=== PATIENT | male | born 1960 | race Native Hawaiian/Other Pacific Islander ===

== ENCOUNTER → 2016-07-13 | Outpatient (CLI) | payer BC ==
[2016-07-13 12:06] LABS: ALT 67 U/L (21-72); AST 49 U/L (17-59); Alkaline Phosphatase 179 U/L (38-126); Anion Gap 18 mmol/L; Blood Urea Nitrogen 12 mg/dL (9-20); Calcium 9.9 mg/dL (8.4-10.2); Carbon Dioxide 24 mmol/L (22-30); Chloride 96 mmol/L (98-107); Cholesterol 156 mg/dL (<200); Glucose 432 mg/dL (74-99); HDL Cholesterol 30 mg/dL (40-60); Non-African American GFR(MDRD) >60 (>60 ml/min/1.73 sqM); Potassium 4.8 mmol/L (3.5-5.1); Sodium 138 mmol/L (137-145); Total Bilirubin 1.1 mg/dL (0.2-1.3); Triglycerides 205 mg/dL (<150)
== END | disposition home or self-care (01) ==
LOC: LABWHC1 10:57
PROVIDERS: ATTEND Internal Medicine Interventional Cardiology
DX: E78.2 Mixed hyperlipidemia (principal)
CPT/HCPCS: 36415; 80053; 80061

== ENCOUNTER → 2016-12-21 | Outpatient (CLI) | payer BC ==
[2016-12-21 10:53] LABS: ALT 41 U/L (21-72); AST 23 U/L (17-59); Cholesterol 166 mg/dL (<200); HDL Cholesterol 38 mg/dL (40-60); Triglycerides 70 mg/dL (<150)
== END | disposition home or self-care (01) ==
LOC: LABWHC1 09:50
PROVIDERS: ATTEND Internal Medicine Interventional Cardiology
DX: E78.2 Mixed hyperlipidemia (principal)
CPT/HCPCS: 36415; 80061; 84450; 84460

== ENCOUNTER → 2017-08-16 | Outpatient (CLI) | payer BC ==
--- NOTE | 2017-08-16 16:07 | XR ---
Lumbar spine HISTORY: Chronic back pain 3 views of the lumbar spine No comparisons Lumbar vertebral bodies show preserved height, alignment, and bone mineralization. There is multileve l spondylosis present. Some mild loss of disc height at the intervertebral levels is noted. Mild ante rior wedge compression deformities of the lower thoracic spine may be physiologic. Sclerosis present in the posterior elements is compatible with facet arthropathy. IMPRESSION: Degenerative disc disease, facet arthropathy suspected. Lumbar MRI may be of benefit.
== END | disposition home or self-care (01) ==
LOC: RADXRMAIN 15:40
PROVIDERS: ATTEND Internal Medicine
DX: M51.36 Other intervertebral disc degeneration, lumbar region (principal); M46.96 Unspecified inflammatory spondylopathy, lumbar region
CPT/HCPCS: 72100

== ENCOUNTER 2017-08-17 11:41 | Emergency (ER) | payer BC ==
[2017-08-17] MEDS ORDERED: SODIUM CHLORIDE 0.9% 1,000 ML IV STA ×2 (12:05)
[2017-08-17] MEDS ORDERED: ONDANSETRON 4 MG/2 ML VIAL IVP STA (12:05)
[2017-08-17] MEDS ORDERED: DICYCLOMINE 10 MG/ML 2 ML AMP IM STA (12:05)
[2017-08-17] MEDS ORDERED: PANTOPRAZOLE 40 MG/10 ML VIAL IVP STA (12:05)
[2017-08-17] MEDS ORDERED: KETOROLAC 30 MG/ML 1 ML VIAL IVP STA (12:05)
[2017-08-17] MEDS ORDERED: MAG HYDROX/AL HYDROX/SIMETH 30 ML, HYOSCYAMINE ELIXIR 10 ML, CIMETIDINE HCL 300 MG PO STA ×3 (12:06)
--- NOTE | 2017-08-17 12:18 | ED ---
Abdominal Pain HPI - General Chief Complaint: Abdominal Pain Stated Complaint: abdominal pain Time Seen by Provider: 08/17/17 11:51 Source: patient, RN notes reviewed, old records reviewed Mode of arrival: ambulatory Limitations: no limitations - History of Present Illness Initial Comments: Patient is 57-year-old male presents emergency department today chief complaint of abdominal pain and dry heaving after he has a bowel movement in the morning. He reports he's had these symptoms for the past month. He states that the symptoms will occur only foramen ileectomy numbness pain and cramping and nausea subsides. He saw his PCP yesterday and was prescribed nausea medicine. He reports that he has no significant pain at this time. When he does have the pain in the morning and is cramping in nature. No blood in his stools or vomit. Patient reports normal urination. - Related Data Home Medications Medication Instructions Recorded Confirmed Aspirin 325 mg PO DAILY 03/25/15 08/17/17 Atorvastatin [Lipitor] 40 mg PO DAILY 03/25/15 08/17/17 Carvedilol [Coreg] 12.5 mg PO BID 08/17/17 08/17/17 Cyclobenzaprine [Flexeril] 10 mg PO BID PRN 08/17/17 08/17/17 Gabapentin [Neurontin] 200 mg PO TID 08/17/17 08/17/17 Ondansetron Odt [Zofran Odt] 4 mg PO Q12HR PRN 08/17/17 08/17/17 metFORMIN HCL [Glucophage] 500 mg PO TID 08/17/17 08/17/17 Previous Rx's Medication Instructions Recorded Clopidogrel [Plavix] 75 mg PO DAILY #90 tab 03/28/15 Lisinopril [Zestril] 5 mg PO BID #180 tab 03/28/15 Nitroglycerin Sl Tabs [Nitrostat] 0.4 mg SUBLINGUAL Q5M PRN #25 tab 03/28/15 Spironolactone [Aldactone] 25 mg PO DAILY #90 tab 03/28/15 Dicyclomine [Bentyl] 10 mg PO TID #12 capsule 08/17/17 Metoclopramide [Reglan] 10 mg PO TID PRN #15 tab 08/17/17 Allergies Allergy/AdvReac Type Severity Reaction Status Date / Time No Known Allergies Allergy Verified 08/17/17 12:07 Review of Systems ROS Statement: Those systems with pertinent positive or pertinent negative responses have been documented in the HPI. ROS Other: All systems not noted in ROS Statement are negative. Past Medical History Past Medical History: Coronary Artery Disease (CAD), Chest Pain / Angina, GERD/ Reflux, Hyperlipidemia, Hypertension, Myocardial Infarction ([place]) Additional Past Medical History / Comment(s): 03/27/15 Pt admitted to floor s/ p PCI with stent to L cx. Other HX: migraines, acute gallstone pancreatitis, cholelithiasis. Last Myocardial Infarction Date:: 2009 History of Any Multi-Drug Resistant Organisms: None Reported Past Surgical History: Adenoidectomy, Cholecystectomy, Heart Catheterization, Heart Catheterization With Stent, Tonsillectomy Additional Past Surgical History / Comment(s): 03/27/15 Cardiac cath with chronic occluded RCA, critical stenosis mid L cx and was stented, mild to moderate disease of proximal LAD, severely impaired L ventricular systolic function with EF est 30-35%. Other SX: Stenting of RCA, sinus surgery, Past Anesthesia/Blood Transfusion Reactions: Motion Sickness Date of Last Stent Placement:: 03/27/15 Past Psychological History: No Psychological Hx Reported Smoking Status: Never smoker Past Alcohol Use History: Occasional Past Drug Use History: Marijuana - Past Family History Mother Family Medical History: No Reported History Additional Family Medical History / Comment(s): Mother is . Pt does not know her PMH or how old she was when she . Father Family Medical History: Coronary Artery Disease (CAD) Additional Family Medical History / Comment(s): Father is - age of unknown. General Exam - General Exam Comments Initial Comments: This is a well appearing 57 year old male, no distress. Limitations: no limitations General appearance: alert, in no apparent distress Head exam: Present: atraumatic, normocephalic, normal inspection Eye exam: Present: normal appearance, PERRL, EOMI. Absent: scleral icterus, conjunctival injection, periorbital swelling ENT exam: Present: normal exam, mucous membranes moist Neck exam: Present: normal inspection. Absent: tenderness, meningismus, lymphadenopathy Respiratory exam: Present: normal lung sounds bilaterally. Absent: respiratory distress, wheezes, rales, rhonchi, stridor Cardiovascular Exam: Present: regular rate, normal rhythm, normal heart sounds. Absent: systolic murmur, diastolic murmur, rubs, gallop, clicks Extremities exam: Present: normal inspection, full ROM, normal capillary refill. Absent: tenderness, pedal edema, joint swelling, calf tenderness Back exam: Present: normal inspection Psychiatric exam: Present: normal affect, normal mood Skin exam: Present: warm, dry, intact, normal color. Absent: rash Course Vital Signs 08/17/17 08/17/17 08/17/17 11:47 13:22 15:26 Temperature 98.7 F 98.1 F Pulse Rate 79 83 86 Respiratory 18 16 18 Rate Blood Pressure 117/78 132/68 124/73 O2 Sat by Pulse 96 98 98 Oximetry Medical Decision Making - Medical Decision Making This patient is a 57 year old male with bowel spasm and nausea after bowel movement each morning. PAtient complains of acid reflux and cramping pain at this time. Labs reviewed and normal. Denies bloody stools. Patient given iIV fluids and pain medication. Given GI cocktail. Paitent KUB questions distal ureteral calculus, but CT confirms likely a pill or foreign body ingestion. Patient informed of results. Patient will be treated with bentyl for IBS symptoms and given referral for GI. Discussed return parameters. All questions answered. - Lab Data Result diagrams: 08/17/17 12:17 08/17/17 12:17 Lab Results 08/17/17 08/17/17 08/17/17 Range/Units 12:17 12:17 12:48 WBC 11.6 H (3.8-10.6) k/uL RBC 4.88 (4.30-5.90) m/uL Hgb 15.0 (13.0-17.5) gm/dL Hct 45.2 (39.0-53.0) % MCV 92.6 (80.0-100.0) fL MCH 30.7 (25.0-35.0) pg MCHC 33.2 (31.0-37.0) g/dL RDW 13.1 (11.5-15.5) % Plt Count 196 (150-450) k/uL Neutrophils % 81 % Lymphocytes % 13 % Monocytes % 4 % Eosinophils % 1 % Basophils % 0 % Neutrophils # 9.4 H (1.3-7.7) k/uL Lymphocytes # 1.5 (1.0-4.8) k/uL Monocytes # 0.4 (0-1.0) k/uL Eosinophils # 0.1 (0-0.7) k/uL Basophils # 0.0 (0-0.2) k/uL Sodium 140 (137-145) mmol/L Potassium 4.9 (3.5-5.1) mmol/L Chloride 103 (98-107) mmol/L Carbon Dioxide 24 (22-30) mmol/L Anion Gap 13 mmol/L BUN 14 (9-20) mg/dL Creatinine 0.62 L (0.66-1.25) mg/dL Est GFR (CKD-EPI)AfAm >90 (>60 ml/min/1.73 sqM) Est GFR (CKD-EPI)NonAf >90 (>60 ml/min/1.73 sqM) Glucose 147 H (74-99) mg/dL Calcium 9.8 (8.4-10.2) mg/dL Total Bilirubin 1.0 (0.2-1.3) mg/dL AST 30 (17-59) U/L ALT 39 (21-72) U/L Alkaline Phosphatase 109 (38-126) U/L Total Protein 8.0 (6.3-8.2) g/dL Albumin 4.2 (3.5-5.0) g/dL Amylase 50 (30-110) U/L Lipase 119 (23-300) U/L Urine Color Yellow Urine Appearance Cloudy (Clear) Urine pH 5.5 (5.0-8.0) Ur Specific [place] 1.029 (1.001-1.035) Urine Protein 1+ H (Negative) Urine Glucose (UA) Negative (Negative) Urine Ketones Trace H (Negative) Urine Blood Negative (Negative) Urine Nitrite Negative (Negative) Urine Bilirubin Negative (Negative) Urine Urobilinogen 2.0 (<2.0) mg/dL Ur Leukocyte Esterase Negative (Negative) Urine WBC 1 (0-5) /hpf Ur Squamous Epith Cells 1 (0-4) /hpf Urine Mucus Occasional H (None) /hpf - Radiology Data Radiology results: report reviewed No bowel obstruction is seen. No distal ureter calculus is noted. 11mm oval density could reflect ingested foreign body or swallowed tooth. Otherwise no suspicious finding is seen to account for patients symptoms. KUB shows distal ureteral 9mm calculus. Correlate clinically for ureteral stone. Disposition Clinical Impression: Abdominal spasms, Nausea Disposition: HOME SELF-CARE Condition: Good Instructions: Irritable Bowel Syndrome (ED) Additional Instructions: Patient advised to follow-up with primary care physician and GI specialist. Critical liquid diet for the next 2 days. Take the antispasmodic medication and use the nausea medicine. Return to the emergency department if any alarming signs symptoms occur. Prescriptions: Dicyclomine [Bentyl] 10 mg PO TID #12 capsule Metoclopramide [Reglan] 10 mg PO TID PRN #15 tab PRN Reason: Nausea Referrals: Lexie Pena MD [Primary Care Provider] - 1-2 days Cesar Henson MD [STAFF PHYSICIAN] - 1-2 days Time of Disposition: 15:10
[2017-08-17 12:40] LABS: Basophils % (A) 0 %; Eosinophils # (A) 0.1 k/uL (0-0.7); Eosinophils % (A) 1 %; HCT 45.2 % (39.0-53.0); Lymphocytes # (A) 1.5 k/uL (1.0-4.8); Lymphocytes % (A) 13 %; MCH 30.7 pg (25.0-35.0); MCHC 33.2 g/dL (31.0-37.0); MCV 92.6 fL (80.0-100.0); Mean Platelet Volume 8.2; Monocytes # (A) 0.4 k/uL (0-1.0); Monocytes % (A) 4 %; Neutrophils # (A) 9.4 k/uL (1.3-7.7); Neutrophils % (A) 81 %; Platelet Count 196 k/uL (150-450); RBC 4.88 m/uL (4.30-5.90); RDW 13.1 % (11.5-15.5); WBC 11.6 k/uL (3.8-10.6)
[2017-08-17 12:45] LABS: Albumin 4.2 g/dL (3.5-5.0); Amylase 50 U/L (30-110); Anion Gap 13 mmol/L; Calcium 9.8 mg/dL (8.4-10.2); Carbon Dioxide 24 mmol/L (22-30); Chloride 103 mmol/L (98-107); Glucose 147 mg/dL (74-99); Lipase 119 U/L (23-300); Potassium 4.9 mmol/L (3.5-5.1); Sodium 140 mmol/L (137-145)
[2017-08-17 12:46] LABS: ALT 39 U/L (21-72); AST 30 U/L (17-59); Alkaline Phosphatase 109 U/L (38-126); Blood Urea Nitrogen 14 mg/dL (9-20)
[2017-08-17 13:15] LABS: Appearance,Urine Cloudy (Clear); Bilirubin,Urine Negative (Negative); Blood,Urine Negative (Negative); Color,Urine Yellow; Glucose,Urine (UA) Negative (Negative); Ketones,Urine Trace (Negative); Leukocyte Esterase,Urine Negative (Negative); Mucus,Urine Occasional /hpf; Nitrite,Urine Negative (Negative); PH, Urine 5.5 (5.0-8.0); Protein,Urine 1+ (Negative); Specific Gravity,Urine 1.029 (1.001-1.035); Squamous Epithelial Cell,Urine 1 /hpf (0-4); WBC,Urine 1 /hpf (0-5)
--- NOTE | 2017-08-17 13:45 | XR ---
EXAMINATION TYPE: XR KUB DATE OF EXAM: 08/17/2017 1:28 PM CLINICAL HISTORY: Generalized abdominal pain with nausea and vomiting for 3 weeks. TECHNIQUE: Two Upright KUB images of the abdomen are obtained. COMPARISON: Abdominal x-ray series December 08, 2010. FINDINGS: Scattered gas is seen in non-distended small bowel loops. Gas and fecal material is seen in non-distended colon. Cholecystectomy clips are now present. There is suspected displaced clip into t he pelvis. There is right pelvic phlebolith. There is new 9 mm calcification superior to this suspici ous for distal ureter calculus. Correlate clinically. Lung bases are clear. No pneumoperitoneum is id entified. Multilevel spurring in the spine is present. IMPRESSION: Overall nonobstructive bowel gas pattern. Suspect new distal right ureter 9 mm calculus. Correlate clinically and with urine lab results.
--- NOTE | 2017-08-17 14:54 | CT ---
EXAMINATION TYPE: CT abdomen pelvis wo con DATE OF EXAM: 08/17/2017 HISTORY: Lower abd pain and nausea x3 weeks. CT DLP: 1682 mGycm. Automated Exposure Control for Dose Reduction was Utilized. TECHNIQUE: CT scan of the abdomen and pelvis is performed without oral or IV contrast. COMPARISON: Same day abdominal x-ray FINDINGS: Within the limitations of a non-contrast study, the following observations are made. LUNG BASES: Coronary artery calcification and/or stents in the RCA and left circumflex distribution a re noted. Dependent atelectasis in both bases is present. LIVER/GB:. Cholecystectomy clips are present. PANCREAS: No significant abnormality is seen. SPLEEN: No significant abnormality is seen. ADRENALS: No significant abnormality is seen. KIDNEYS: No renal stones or hydronephrosis is present bilaterally. Correlating with x-ray abnormality there is 11 mm oval calcific density within distal small bowel loop axial image 62 could reflect ing ested foreign body or possibly nondigested pill. Swallowed tooth would be in differential. BOWEL: A few diverticula are seen at level of splenic flexure. No suspicious small or large bowel dil atation is present. GENITAL ORGANS: Some central zone calcifications are seen in normal size prostate gland. LYMPH NODES: No greater than 1cm abdominal or pelvic lymph nodes are appreciated. OSSEOUS STRUCTURES: There is moderate to severe multilevel spurring in the visualized thoracic spine. OTHER: There are surgical sutures anterior abdominal wall subcutaneous fat just anterior to rectus mu scles and sheath axial image 67 of the lower abdomen just right of midline. IMPRESSION: No bowel obstruction is seen. No distal ureter calculus is noted. There is 11 mm oval samuel cific density in distal small bowel loop could reflect ingested foreign body or swallowed tooth. Othe rwise no suspicious finding is seen to account for patient's symptoms.
[2017-08-17 15:27] VITALS: BP 124/73; PULSE 86; RESP 18; TEMP 98.1
== END 2017-08-17 15:26 | disposition home or self-care (01) ==
LOC: EC 11:41
DX: R11.0 Nausea (principal); R25.2 Cramp and spasm; E78.5 Hyperlipidemia, unspecified; I10 Essential (primary) hypertension; I25.10 Atherosclerotic heart disease of native coronary artery without angina pectoris; I25.2 Old myocardial infarction; Z79.82 Long term (current) use of aspirin; Z79.84 Long term (current) use of oral hypoglycemic drugs; Z79.899 Other long term (current) drug therapy; Z90.49 Acquired absence of other specified parts of digestive tract; Z53.20 Procedure and treatment not carried out because of patient's decision for unspecified reasons
CPT/HCPCS: 99285; 96374; 96375 ×2; 96361 ×2; 36415; 80053; 82150; 83690; 85025; 81001; 74018; 74176; J2405; J1885; C9113

== ENCOUNTER 2017-08-18 09:17 | Emergency (ER) | payer BC ==
[2017-08-18] MEDS ORDERED: SODIUM CHLORIDE 0.9% 500 ML IV STA (10:25)
[2017-08-18] MEDS ORDERED: ONDANSETRON 4 MG/2 ML VIAL IVP STA (10:25)
[2017-08-18] MEDS ORDERED: DICYCLOMINE 10 MG/ML 2 ML AMP IM STA (10:26)
[2017-08-18] MEDS ORDERED: FAMOTIDINE 20 MG/2 ML VIAL IV STA (10:26)
--- NOTE | 2017-08-18 10:29 | ED ---
General Adult HPI - General Chief complaint: Abdominal Pain Stated complaint: ABDOMINAL PAIN Time Seen by Provider: 08/18/17 10:14 Source: patient, RN notes reviewed Mode of arrival: wheelchair Limitations: no limitations - History of Present Illness Initial comments: Patient is a pleasant 57-year-old male presenting to the emergency department with nausea. Symptoms have been occurring for months. Symptoms have been almost daily for the past few weeks. Patient wakes up in the morning and feels that he needs to have a bowel movement. Patient does have a bowel movement which is reported as normal. Following this patient has nausea and abdominal cramping. Nausea is usually worse and lasts longer. At this point abdominal cramping has resolved. There is no pain at this time. Patient still feels nauseated. Patient did take nausea medicine without improvement of symptoms. No fevers. No constipation or diarrhea. No dysuria or hematuria. Patient does have dry heaves however rarely vomits. - Related Data Home Medications Medication Instructions Recorded Confirmed Aspirin 325 mg PO DAILY 03/25/15 08/18/17 Atorvastatin [Lipitor] 40 mg PO DAILY 03/25/15 08/18/17 Carvedilol [Coreg] 12.5 mg PO BID 08/17/17 08/18/17 Cyclobenzaprine [Flexeril] 10 mg PO BID PRN 08/17/17 08/18/17 Gabapentin [Neurontin] 200 mg PO TID 08/17/17 08/18/17 Ondansetron Odt [Zofran Odt] 4 mg PO Q12HR PRN 08/17/17 08/18/17 metFORMIN HCL [Glucophage] 500 mg PO TID 08/17/17 08/18/17 Previous Rx's Medication Instructions Recorded Clopidogrel [Plavix] 75 mg PO DAILY #90 tab 03/28/15 Lisinopril [Zestril] 5 mg PO BID #180 tab 03/28/15 Nitroglycerin Sl Tabs [Nitrostat] 0.4 mg SUBLINGUAL Q5M PRN #25 tab 03/28/15 Spironolactone [Aldactone] 25 mg PO DAILY #90 tab 03/28/15 Dicyclomine [Bentyl] 10 mg PO TID #12 capsule 08/17/17 Metoclopramide [Reglan] 10 mg PO TID PRN #15 tab 08/17/17 Pantoprazole [Protonix] 40 mg PO DAILY #30 tablet. 08/18/17 Allergies Allergy/AdvReac Type Severity Reaction Status Date / Time No Known Allergies Allergy Verified 08/18/17 09:34 Review of Systems ROS Statement: Those systems with pertinent positive or pertinent negative responses have been documented in the HPI. ROS Other: All systems not noted in ROS Statement are negative. Constitutional: Denies: fever Eyes: Denies: eye pain ENT: Denies: ear pain Respiratory: Denies: cough Cardiovascular: Denies: chest pain Endocrine: Denies: fatigue Gastrointestinal: Reports: abdominal pain, nausea. Denies: diarrhea, constipation Genitourinary: Denies: dysuria Musculoskeletal: Denies: back pain Skin: Denies: rash Neurological: Denies: weakness Past Medical History Past Medical History: Coronary Artery Disease (CAD), Chest Pain / Angina, GERD/ Reflux, Hyperlipidemia, Hypertension, Myocardial Infarction ([place]) Additional Past Medical History / Comment(s): 03/27/15 Pt admitted to floor s/ p PCI with stent to L cx. Other HX: migraines, acute gallstone pancreatitis, cholelithiasis. Last Myocardial Infarction Date:: 2009 History of Any Multi-Drug Resistant Organisms: None Reported Past Surgical History: Adenoidectomy, Cholecystectomy, Heart Catheterization, Heart Catheterization With Stent, Tonsillectomy Additional Past Surgical History / Comment(s): 03/27/15 Cardiac cath with chronic occluded RCA, critical stenosis mid L cx and was stented, mild to moderate disease of proximal LAD, severely impaired L ventricular systolic function with EF est 30-35%. Other SX: Stenting of RCA, sinus surgery, Past Anesthesia/Blood Transfusion Reactions: Motion Sickness Date of Last Stent Placement:: 03/27/15 Past Psychological History: No Psychological Hx Reported Smoking Status: Current every day smoker Past Alcohol Use History: Occasional Past Drug Use History: Marijuana - Past Family History Mother Family Medical History: No Reported History Additional Family Medical History / Comment(s): Mother is . Pt does not know her PMH or how old she was when she . Father Family Medical History: Coronary Artery Disease (CAD) Additional Family Medical History / Comment(s): Father is - age of unknown. General Exam Limitations: no limitations General appearance: alert, in no apparent distress Head exam: Present: atraumatic Eye exam: Present: normal appearance, PERRL ENT exam: Present: normal oropharynx Neck exam: Present: normal inspection Respiratory exam: Present: normal lung sounds bilaterally Cardiovascular Exam: Present: regular rate, normal rhythm Expanded Peripheral pulses: 2+: Dorsalis Pedis (R), Dorsalis Pedis (L) GI/Abdominal exam: Present: soft, normal bowel sounds. Absent: distended, tenderness, guarding, rebound, rigid, pulsatile mass Extremities exam: Present: normal inspection Neurological exam: Present: alert Psychiatric exam: Present: normal affect, normal mood Skin exam: Present: normal color Course Vital Signs 08/18/17 08/18/17 09:20 11:43 Temperature 97.8 F Pulse Rate 73 87 Respiratory 18 16 Rate Blood Pressure 114/63 147/81 O2 Sat by Pulse 98 98 Oximetry EKG Findings - EKG Comments: EKG Findings:: Sinus rhythm at 83. Frequent PVCs. IL 154. QRS 116. QT 396. QTc 465. Left axis. Inferior Q waves. No acute ST change. Medical Decision Making - Medical Decision Making Patient reevaluated and improved after GI cocktail. Patient updated on results and need for follow-up. Patient updated on recommendation for endoscopy. - Lab Data Result diagrams: 08/18/17 10:34 08/18/17 10:34 Lab Results 08/18/17 08/18/17 08/18/17 Range/Units 10:34 10:34 10:34 WBC (3.8-10.6) k/uL RBC (4.30-5.90) m/uL Hgb (13.0-17.5) gm/dL Hct (39.0-53.0) % MCV (80.0-100.0) fL MCH (25.0-35.0) pg MCHC (31.0-37.0) g/dL RDW (11.5-15.5) % Plt Count (150-450) k/uL Neutrophils % % Lymphocytes % % Monocytes % % Eosinophils % % Basophils % % Neutrophils # (1.3-7.7) k/uL Lymphocytes # (1.0-4.8) k/uL Monocytes # (0-1.0) k/uL Eosinophils # (0-0.7) k/uL Basophils # (0-0.2) k/uL PT 10.5 (9.0-12.0) sec INR 1.1 (<1.2) APTT 23.7 (22.0-30.0) sec Sodium 140 (137-145) mmol/L Potassium 5.4 H (3.5-5.1) mmol/L Chloride 105 (98-107) mmol/L Carbon Dioxide 26 (22-30) mmol/L Anion Gap 9 mmol/L BUN 13 (9-20) mg/dL Creatinine 0.66 (0.66-1.25) mg/dL Est GFR (CKD-EPI)AfAm >90 (>60 ml/min/1.73 sqM) Est GFR (CKD-EPI)NonAf >90 (>60 ml/min/1.73 sqM) Glucose 160 H (74-99) mg/dL Calcium 9.3 (8.4-10.2) mg/dL Total Bilirubin 0.6 (0.2-1.3) mg/dL AST 21 (17-59) U/L ALT 37 (21-72) U/L Alkaline Phosphatase 99 (38-126) U/L Total Creatine Kinase 59 (55-170) U/L CK-MB (CK-2) 0.8 (0.0-2.4) ng/mL CK-MB (CK-2) Rel Index 1.4 Troponin I <0.012 (0.000-0.034) ng/mL Total Protein 7.2 (6.3-8.2) g/dL Albumin 3.8 (3.5-5.0) g/dL Amylase 45 (30-110) U/L Lipase 164 (23-300) U/L Urine Color Urine Appearance (Clear) Urine pH (5.0-8.0) Ur Specific [place] (1.001-1.035) Urine Protein (Negative) Urine Glucose (UA) (Negative) Urine Ketones (Negative) Urine Blood (Negative) Urine Nitrite (Negative) Urine Bilirubin (Negative) Urine Urobilinogen (<2.0) mg/dL Ur Leukocyte Esterase (Negative) 08/18/17 08/18/17 Range/Units 10:34 11:15 WBC 10.1 (3.8-10.6) k/uL RBC 4.61 (4.30-5.90) m/uL Hgb 13.9 (13.0-17.5) gm/dL Hct 43.1 (39.0-53.0) % MCV 93.6 (80.0-100.0) fL MCH 30.3 (25.0-35.0) pg MCHC 32.3 (31.0-37.0) g/dL RDW 13.1 (11.5-15.5) % Plt Count 181 (150-450) k/uL Neutrophils % 76 % Lymphocytes % 16 % Monocytes % 4 % Eosinophils % 2 % Basophils % 0 % Neutrophils # 7.7 (1.3-7.7) k/uL Lymphocytes # 1.6 (1.0-4.8) k/uL Monocytes # 0.4 (0-1.0) k/uL Eosinophils # 0.2 (0-0.7) k/uL Basophils # 0.0 (0-0.2) k/uL PT (9.0-12.0) sec INR (<1.2) APTT (22.0-30.0) sec Sodium (137-145) mmol/L Potassium (3.5-5.1) mmol/L Chloride (98-107) mmol/L Carbon Dioxide (22-30) mmol/L Anion Gap mmol/L BUN (9-20) mg/dL Creatinine (0.66-1.25) mg/dL Est GFR (CKD-EPI)AfAm (>60 ml/min/1.73 sqM) Est GFR (CKD-EPI)NonAf (>60 ml/min/1.73 sqM) Glucose (74-99) mg/dL Calcium (8.4-10.2) mg/dL Total Bilirubin (0.2-1.3) mg/dL AST (17-59) U/L ALT (21-72) U/L Alkaline Phosphatase (38-126) U/L Total Creatine Kinase (55-170) U/L CK-MB (CK-2) (0.0-2.4) ng/mL CK-MB (CK-2) Rel Index Troponin I (0.000-0.034) ng/mL Total Protein (6.3-8.2) g/dL Albumin (3.5-5.0) g/dL Amylase (30-110) U/L Lipase (23-300) U/L Urine Color Yellow Urine Appearance Clear (Clear) Urine pH 5.5 (5.0-8.0) Ur Specific [place] 1.019 (1.001-1.035) Urine Protein Negative (Negative) Urine Glucose (UA) Negative (Negative) Urine Ketones Negative (Negative) Urine Blood Negative (Negative) Urine Nitrite Negative (Negative) Urine Bilirubin Negative (Negative) Urine Urobilinogen <2.0 (<2.0) mg/dL Ur Leukocyte Esterase Negative (Negative) Disposition Clinical Impression: Nausea Disposition: HOME SELF-CARE Condition: Stable Instructions: Acute Nausea and Vomiting (ED), Abdominal Pain (ED) Additional Instructions: Please follow-up with your primary care physician this week. Also consider follow-up with gastroenterology or surgeon for endoscopy. Return for increased pain, fevers, not tolerating fluids, worsening or changing symptoms or other concerns. Prescriptions: Pantoprazole [Protonix] 40 mg PO DAILY #30 tablet.dr Referrals: Lexie Pena MD [Primary Care Provider] - 1-2 days Time of Disposition: 12:23
[2017-08-18 10:46] LABS: Basophils % (A) 0 %; Eosinophils # (A) 0.2 k/uL (0-0.7); Eosinophils % (A) 2 %; HCT 43.1 % (39.0-53.0); HGB 13.9 gm/dL (13.0-17.5); Lymphocytes # (A) 1.6 k/uL (1.0-4.8); Lymphocytes % (A) 16 %; MCH 30.3 pg (25.0-35.0); MCHC 32.3 g/dL (31.0-37.0); MCV 93.6 fL (80.0-100.0); Mean Platelet Volume 8.1; Monocytes # (A) 0.4 k/uL (0-1.0); Monocytes % (A) 4 %; Neutrophils # (A) 7.7 k/uL (1.3-7.7); Neutrophils % (A) 76 %; Platelet Count 181 k/uL (150-450); RBC 4.61 m/uL (4.30-5.90); RDW 13.1 % (11.5-15.5); WBC 10.1 k/uL (3.8-10.6)
[2017-08-18 10:56] LABS: ALT 37 U/L (21-72); AST 21 U/L (17-59); Albumin 3.8 g/dL (3.5-5.0); Alkaline Phosphatase 99 U/L (38-126); Amylase 45 U/L (30-110); Anion Gap 9 mmol/L; Blood Urea Nitrogen 13 mg/dL (9-20); Calcium 9.3 mg/dL (8.4-10.2); Carbon Dioxide 26 mmol/L (22-30); Chloride 105 mmol/L (98-107); Glucose 160 mg/dL (74-99); Lipase 164 U/L (23-300); Potassium 5.4 mmol/L (3.5-5.1); Sodium 140 mmol/L (137-145); Total Bilirubin 0.6 mg/dL (0.2-1.3); Total Protein 7.2 g/dL (6.3-8.2)
[2017-08-18 11:03] LABS: Creatine Kinase 59 U/L (55-170)
[2017-08-18 11:04] LABS: INR 1.1 (<1.2); Partial Thromboplastin Time 23.7 sec (22.0-30.0); Prothrombin Time 10.5 sec (9.0-12.0)
--- NOTE | 2017-08-18 11:05 | XR ---
EXAMINATION TYPE: XR KUB DATE OF EXAM: 08/18/2017 10:54 AM CLINICAL HISTORY: Generalized abdominal pain with nausea and vomiting. TECHNIQUE: Two Upright KUB images of the abdomen are obtained. COMPARISON: CT abdomen and pelvis and abdominal x-ray from one day earlier. FINDINGS: Scattered gas is seen in non-distended stomach and small bowel loops. Gas and fecal materia l is seen in non-distended colon. Cholecystectomy clips are redemonstrated. A 9 mm calcific density h as progressed to lateral aspect right upper pelvis likely approaching cecum. Lung bases are clear. No pneumoperitoneum is identified. There is metallic subcutaneous staple overlying the superior aspect of pubic symphysis. Visualized osseous structures are intact. IMPRESSION: Overall nonobstructive bowel gas pattern.
[2017-08-18 11:16] LABS: Creatine Kinase MB 0.8 ng/mL (0.0-2.4); Troponin I <0.012 ng/mL (0.000-0.034)
[2017-08-18] MEDS ORDERED: MAG HYDROX/AL HYDROX/SIMETH 30 ML, HYOSCYAMINE ELIXIR 10 ML, CIMETIDINE HCL 300 MG, LID... PO STA ×4 (11:37)
[2017-08-18 11:47] LABS: Appearance,Urine Clear (Clear); Bilirubin,Urine Negative (Negative); Blood,Urine Negative (Negative); Color,Urine Yellow; Glucose,Urine (UA) Negative (Negative); Ketones,Urine Negative (Negative); Leukocyte Esterase,Urine Negative (Negative); Nitrite,Urine Negative (Negative); PH, Urine 5.5 (5.0-8.0); Protein,Urine Negative (Negative); Specific Gravity,Urine 1.019 (1.001-1.035); Urobilinogen,Urine <2.0 mg/dL (<2.0)
[2017-08-18 11:50] VITALS: RESP 16
[2017-08-18 12:29] VITALS: BP 111/55; PULSE 80; TEMP 98.5
== END 2017-08-18 12:29 | disposition home or self-care (01) ==
LOC: EC 09:17
DX: R11.2 Nausea with vomiting, unspecified (principal); I25.119 Atherosclerotic heart disease of native coronary artery with unspecified angina pectoris; E78.5 Hyperlipidemia, unspecified; I10 Essential (primary) hypertension; I25.2 Old myocardial infarction; F17.200 Nicotine dependence, unspecified, uncomplicated; Z79.82 Long term (current) use of aspirin; Z79.84 Long term (current) use of oral hypoglycemic drugs; Z79.899 Other long term (current) drug therapy; Z90.49 Acquired absence of other specified parts of digestive tract
CPT/HCPCS: 36415; 93005; 80053; 82150; 82550; 82553; 83690; 84484; 85025; 85610; 85730; 81003; 74018; 99284; 96374; 96375; 96361; 96372; J0500; J2405

== ENCOUNTER → 2018-05-09 | Outpatient (CLI) | payer BC ==
[2018-05-09 17:16] LABS: Albumin 4.2 g/dL (3.80-4.90); Albumin/Globulin Ratio 1.62 (1.20-2.10); Anion Gap 4.1 mmol/L (4.00-12.00); Carbon Dioxide 25.9 mmol/L (21.6-31.8); Globulin 2.6 g/dL (2.1-3.7); LDL Cholesterol,Calculated 66.2 mg/dL (0.0-131.0); Potassium 4.4 mmol/L (3.5-5.5); Total Bilirubin 0.5 mg/dL (0.2-1.2); Total Protein 6.8 g/dL (6.2-8.2); VLDL Calculation 10.8 mg/dL (5.00-40.00)
== END ==
LOC: LABWHC1 09:26
PROVIDERS: ATTEND Nurse Practitioner Adult Health
DX: E78.2 Mixed hyperlipidemia (principal); I25.5 Ischemic cardiomyopathy
CPT/HCPCS: 36415; 80053; 80061

== ENCOUNTER 2019-06-03 17:22 | Emergency (ER) | payer BC ==
[2019-06-03 18:11] VITALS: RESP 18
[2019-06-03] MEDS ORDERED: ACET/COD 300 MG/30 MG STARTER PACK 6 TAB BTL PO STA (18:48)
--- NOTE | 2019-06-03 19:06 | XR ---
EXAMINATION TYPE: XR shoulder complete LT DATE OF EXAM: 06/03/2019 COMPARISON: NONE HISTORY: Left shoulder pain TECHNIQUE: 3 views FINDINGS: The glenohumeral joint is intact. I see no fracture nor dislocation. There are no pathologi c calcifications. IMPRESSION: Negative left shoulder exam.
--- NOTE | 2019-06-03 19:13 | ED ---
Upper Extremity HPI - General Chief Complaint: Extremity Injury, Upper Stated Complaint: Fall, shoulder injury Source: patient Mode of arrival: ambulatory Limitations: no limitations - History of Present Illness Initial Comments: 59-year-old male presenting today for chief complaint of left shoulder pain patient states he fell while he was in [place] this morning when he s lipped on ice. Patient denies injury to the head or neck facilities. The anterior right shoulder. Patient denies any chest or abdominal pain, denies SOB. Patient denies rib pain, wrist pain. States pain radiates towards audible. Patient denies weakness of the UE. Patient remaining ROS (-). Denies other injuries. - Related Data Home Medications Medication Instructions Recorded Confirmed Aspirin 325 mg PO DAILY 03/25/15 08/18/17 Atorvastatin [Lipitor] 40 mg PO DAILY 03/25/15 08/18/17 Carvedilol [Coreg] 12.5 mg PO BID 08/17/17 08/18/17 Cyclobenzaprine [Flexeril] 10 mg PO BID PRN 08/17/17 08/18/17 Gabapentin [Neurontin] 200 mg PO TID 08/17/17 08/18/17 Ondansetron Odt [Zofran Odt] 4 mg PO Q12HR PRN 08/17/17 08/18/17 metFORMIN HCL [Glucophage] 500 mg PO TID 08/17/17 08/18/17 Previous Rx's Medication Instructions Recorded Clopidogrel [Plavix] 75 mg PO DAILY #90 tab 03/28/15 Lisinopril [Zestril] 5 mg PO BID #180 tab 03/28/15 Nitroglycerin Sl Tabs [Nitrostat] 0.4 mg SUBLINGUAL Q5M PRN #25 tab 03/28/15 Spironolactone [Aldactone] 25 mg PO DAILY #90 tab 03/28/15 Dicyclomine [Bentyl] 10 mg PO TID #12 capsule 08/17/17 Metoclopramide [Reglan] 10 mg PO TID PRN #15 tab 08/17/17 Pantoprazole [Protonix] 40 mg PO DAILY #30 tablet. 08/18/17 Allergies Allergy/AdvReac Type Severity Reaction Status Date / Time No Known Allergies Allergy Verified 06/03/19 18:11 Review of Systems ROS Statement: Those systems with pertinent positive or pertinent negative responses have been documented in the HPI. ROS Other: All systems not noted in ROS Statement are negative. Past Medical History Past Medical History: Coronary Artery Disease (CAD), Chest Pain / Angina, GERD/Reflux, Hyperlipidemia, Hypertension, Myocardial Infarction ([place]) Additional Past Medical History / Comment(s): migraines, acute gallstone pancreatitis, cholelithiasis. Last Myocardial Infarction Date:: 2009 History of Any Multi-Drug Resistant Organisms: None Reported Past Surgical History: Adenoidectomy, Cholecystectomy, Heart Catheterization, Heart Catheterization With Stent, Tonsillectomy Additional Past Surgical History / Comment(s): 03/27/15 Cardiac cath with chronic occluded RCA, critical stenosis mid L cx and was stented, mild to moderate disease of proximal LAD, severely impaired L ventricular systolic function with EF est 30-35%. Other SX: Stenting of RCA, sinus surgery, Past Anesthesia/Blood Transfusion Reactions: Motion Sickness Date of Last Stent Placement:: 03/27/15 Past Psychological History: No Psychological Hx Reported Smoking Status: Current every day smoker Past Alcohol Use History: Occasional Past Drug Use History: Marijuana - Past Family History Mother Family Medical History: No Reported History Additional Family Medical History / Comment(s): Mother is . Pt does not know her PMH or how old she was when she . Father Family Medical History: Coronary Artery Disease (CAD) Additional Family Medical History / Comment(s): Father is - age of unknown. General Exam - General Exam Comments Initial Comments: General: The patient is awake and alert, in no distress, and does not appear acutely ill. Eye: Pupils are equal, round and reactive to light, extra-ocular movements are intact. No nystagmus. There is normal conjunctiva bilaterally. No signs of icterus. Ears, nose, mouth and throat: There are moist mucous membranes and no oral lesions. Neck: The neck is supple, there is no tenderness or JVD. No metatarsal patient or paravertebral of the cervical thoracic or lumbar spine. Cardiovascular: There is a regular rate and rhythm. No murmur, rub or gallop is appreciated. Respiratory: Lungs are clear to auscultation, respirations are non-labored, breath sounds are equal. No wheezes, stridor, rales, or rhonchi. Gastrointestinal: Soft, non-distended, non-tender abdomen without masses or organomegaly noted. There is no rebound or guarding present. Musculoskeletal: Normal inspection of the shoulders bilaterally. Patient is pain over the before meals joint of the left shoulder. No pain of the elbow and wrist. Patient is able to range the shoulder however has pain in the left shoulder. Strength 5/5. Sensation intact. Radial pulses equal bilaterally 2+. Patient is able to make the okay fingers crossed thumbs-up and oppose the small digit thumb without difficulty of the left upper extremity Neurological: A&O x 3. CN II-XII intact grossly, There are no obvious motor or sensory deficits. Coordination appears grossly intact. Speech is normal. Skin: Skin is warm and dry and no rashes or lesions are noted. Psychiatric: Cooperative, appropriate mood & affect, normal judgment. Limitations: no limitations Course Vital Signs 06/03/19 06/03/19 18:08 21:00 Temperature 98.3 F 98 F Pulse Rate 67 91 Respiratory 18 18 Rate Blood Pressure 127/78 112/88 O2 Sat by Pulse 94 L 94 L Oximetry Medical Decision Making - Medical Decision Making Pt denied head injury, LOC, use of blood thinners, neck pain or any other complaints. Imaging studies negative for acute process of the left shoulder however pain has been localized over the AC joint. patient placed in sling. Neurovascularly intact. imaging studies reviewed. Discussed case with attending Dr. Chinchilla who is agreeable to discharge with outpatient orthopedic f/u. Disposition Clinical Impression: Left shoulder pain, Fall Disposition: HOME SELF-CARE Condition: Good Instructions (If sedation given, give patient instructions): Acromioclavicular Separation (ED) Additional Instructions: Please use medication as discussed. Please follow-up with family doctor in the next 2 days, and orthopedic surgery in next week if pain is persistent, may need MRI of shoulder for better evaluation. Please return to emergency room if the symptoms increase or worsen or for any other concerns. Is patient prescribed a controlled substance at d/c from ED?: No Referrals: Lexie Pena MD [Primary Care Provider] - 1-2 days Isaac Nugent MD [STAFF PHYSICIAN] - 1-2 days Time of Disposition: 20:07
--- NOTE | 2019-06-03 20:04 | XR ---
EXAMINATION TYPE: XR elbow complete LT DATE OF EXAM: 06/03/2019 COMPARISON: NONE HISTORY: Elbow pain TECHNIQUE: 3 views FINDINGS: I see no fracture nor dislocation. Joint spaces are normal. There is no sign of elbow joint effusion. IMPRESSION: Negative left elbow exam.
[2019-06-03 21:03] VITALS: BP 112/88; PULSE 91; TEMP 98
== END 2019-06-03 20:50 | disposition home or self-care (01) ==
LOC: EC 17:22
DX: M25.512 Pain in left shoulder (principal); I25.119 Atherosclerotic heart disease of native coronary artery with unspecified angina pectoris; K21.9 Gastro-esophageal reflux disease without esophagitis; E78.5 Hyperlipidemia, unspecified; I10 Essential (primary) hypertension; I25.2 Old myocardial infarction; F17.200 Nicotine dependence, unspecified, uncomplicated; Z79.82 Long term (current) use of aspirin; Z79.84 Long term (current) use of oral hypoglycemic drugs; Z79.899 Other long term (current) drug therapy; Z86.69 Personal history of other diseases of the nervous system and sense organs; Z95.5 Presence of coronary angioplasty implant and graft; W00.0XXA Fall on same level due to ice and snow, initial encounter; Y92.89 Other specified places as the place of occurrence of the external cause
CPT/HCPCS: 99283

== ENCOUNTER → 2020-04-17 | Outpatient (CLI) | payer BC ==
[2020-04-17 15:08] LABS: African American GFR (CKD) 95.7 (60.0-200.0); Albumin 4.3 g/dL (3.80-4.90); Albumin/Globulin Ratio 1.16 (1.60-3.17); Anion Gap 5.2 mmol/L (4.00-12.00); Calcium 9.9 mg/dL (8.7-10.3); Carbon Dioxide 28.8 mmol/L (21.6-31.8); Chol/HDL Ratio 4.09; Globulin 3.7 g/dL (1.6-3.3); LDL Cholesterol,Calculated 79.4 mg/dL (0.0-131.0); Non-African American GFR(CKD) 82.6 (60.0-200.0); Potassium 5.1 mmol/L (3.5-5.5); Total Bilirubin 0.5 mg/dL (0.2-1.2); VLDL Calculation 25.6 mg/dL (5.00-40.00)
== END | disposition home or self-care (01) ==
LOC: LABWHC1 08:09
PROVIDERS: ATTEND Internal Medicine Interventional Cardiology
DX: E78.2 Mixed hyperlipidemia (principal)
CPT/HCPCS: 36415; 80053; 80061

== ENCOUNTER → 2020-05-28 | Outpatient (CLI) | payer BC ==
--- NOTE | 2020-05-28 09:21 | US ---
EXAMINATION TYPE: US kidneys/renal and bladder DATE OF EXAM: 05/28/2020 COMPARISON: NONE CLINICAL HISTORY: R10.9 FLANK PAIN. on and off right flank pain for a year, no h/o stones, large habi tus EXAM MEASUREMENTS: Right Kidney: 11.5 x 5.0 x 5.4 cm Left Kidney: 11.9 x 5.5 x 5.7 cm Right Kidney: No hydronephrosis or masses seen Left Kidney: No hydronephrosis or masses seen Bladder: wnl IMPRESSION: 1. Normal renal ultrasound
== END | disposition home or self-care (01) ==
LOC: RADUSWWP 07:04
PROVIDERS: ATTEND Internal Medicine
DX: R10.9 Unspecified abdominal pain (principal)
CPT/HCPCS: 76770

== ENCOUNTER → 2020-10-24 | Outpatient (CLI) | payer BC ==
[2020-10-24 22:10] LABS: African American GFR (CKD) 114.1 (60.0-200.0); Albumin 4.3 g/dL (3.80-4.90); Albumin/Globulin Ratio 1.19 (1.60-3.17); Anion Gap 10.7 mmol/L (4.00-12.00); Calcium 9.7 mg/dL (8.7-10.3); Carbon Dioxide 24.3 mmol/L (21.6-31.8); Chol/HDL Ratio 5.77; Globulin 3.6 g/dL (1.6-3.3); LDL Cholesterol,Calculated 153.6 mg/dL (0.0-131.0); Non-African American GFR(CKD) 98.5 (60.0-200.0); Potassium 4.8 mmol/L (3.5-5.5); Total Bilirubin 0.7 mg/dL (0.2-1.2); Total Protein 7.9 g/dL (6.2-8.2); VLDL Calculation 32.4 mg/dL (5.00-40.00)
== END | disposition home or self-care (01) ==
LOC: LABWHC1 08:10
PROVIDERS: ATTEND Internal Medicine Interventional Cardiology
DX: E78.2 Mixed hyperlipidemia (principal)
CPT/HCPCS: 36415; 80053; 80061

== ENCOUNTER 2020-11-28 07:24 | Day surgery (SDC) | payer BC ==
[2020-11-26 09:56] VITALS: BMI 48.2
[~2020-11-28 07:24] MED LIST: LACTATED RINGERS 1,000 ML IV SCH; LIDOCAINE 1% (10MG/ML) FOR IV START INTRADERMA PRN
[2020-11-28 07:47] VITALS: RESP 16; TEMP 98.3
[2020-11-28 08:02] LABS: Glucose,Whole Blood 246 mg/dL (75-99)
[2020-11-28] MEDS ORDERED: PROPOFOL 10 MG/ML 20 ML VIAL IV ONE (08:41)
--- NOTE | 2020-11-28 08:55 | P.PCN ---
Date of Procedure: 11/28/20 Description of Procedure: BRIEF HISTORY: Patient is a 60-year-old male presenting for outpatient esophagogastroduodenoscopy for evaluation of GERD. The patient reports symptoms of epigastric abdominal pain and distention and reflux. PROCEDURE PERFORMED: Esophagogastroduodenoscopy with biopsy. PREOPERATIVE DIAGNOSIS: GERD, epigastric pain. ESTIMATED BLOOD LOSS: Minimal. IV sedation per anesthesia. PROCEDURE: After informed consent was obtained, the patient was brought into the endoscopy unit. IV sedation was administered by Anesthesia under continuous monitoring. Initially the Olympus GIF-190 video endoscope was inserted into the mouth. Esophagus intubated without any difficulty. It was gradually advanced into the stomach and duodenum and carefully examined. The bulb and the second part of the duodenum appeared normal, with biopsies taken. The scope at this time was withdrawn to the stomach, adequately insufflated with air, and upon careful examination, mucosa of the antrum, body, cardia and the fundus appeared normal, except for some scattered erythema and nodularity in the antrum and body suggestive of mild gastritis with biopsies of the antrum and body taken. The scope was then withdrawn into the esophagus. The GE junction was located at 39 cm from the incisors. The esophagus appeared normal, with lower esophageal biopsies taken. There were no erosions or ulcerations seen and the patient tolerated the procedure well. IMPRESSION: 1. Mild gastritis. 2. Biopsies of the duodenum, antrum and body and lower esophagus. RECOMMENDATIONS: The findings of this examination were discussed with the patient and his family. Okay to resume diet. Okay to resume medications. Await pathology from biopsies. Continue current medical management.
[2020-11-28 09:26] VITALS: BP 126/85; PULSE 81
== END 2020-11-28 09:45 | disposition home or self-care (01) ==
LOC: ORWHC2ENDO 07:24
PROVIDERS: ATTEND Internal Medicine
DX: K29.50 Unspecified chronic gastritis without bleeding (principal); K21.9 Gastro-esophageal reflux disease without esophagitis; I25.10 Atherosclerotic heart disease of native coronary artery without angina pectoris; I10 Essential (primary) hypertension; E78.5 Hyperlipidemia, unspecified; I25.2 Old myocardial infarction; E11.9 Type 2 diabetes mellitus without complications; Z90.89 Acquired absence of other organs; Z90.49 Acquired absence of other specified parts of digestive tract; Z98.890 Other specified postprocedural states; Z79.82 Long term (current) use of aspirin; Z79.84 Long term (current) use of oral hypoglycemic drugs; Z79.891 Long term (current) use of opiate analgesic; Z79.899 Other long term (current) drug therapy
CPT/HCPCS: 88305; 43239; J2704

== ENCOUNTER → 2021-07-01 | Outpatient (CLI) | payer BC ==
[2021-07-01 14:50] LABS: HCT 49.9 % (39.6-50.0); HGB 15.4 g/dL (13.0-17.0); MCH 29.2 pg (27.0-32.0); MCHC 30.9 g/dL (32.0-37.0); MCV 94.5 fL (80.0-97.0); Platelet Count 190 X 10*3/uL (140-440); RBC 5.28 X 10*6/uL (4.40-5.60); RDW 12.7 % (11.5-14.5); WBC 9.53 X 10*3/uL (4.50-10.00)
[2021-07-01 15:06] LABS: ALT 41 U/L (10-49); AST 40 U/L (14-35); Albumin 3.9 g/dL (3.8-4.9); Albumin/Globulin Ratio 0.96 (1.60-3.17); Alkaline Phosphatase 106 U/L (41-126); BUN/Creat Ratio 10.15 Ratio (12.00-20.00); Blood Urea Nitrogen 7.5 mg/dL (9.0-27.0); Calcium 9.6 mg/dL (8.7-10.3); Carbon Dioxide 25.3 mmol/L (20.0-27.5); Chloride 100 mmol/L (96-109); Chol/HDL Ratio 3.56 Ratio; Globulin 4.1 g/dL (1.6-3.3); Glucose 324 mg/dL (70-110); LDL Cholesterol,Calculated 77.4 mg/dL (0.0-131.0); Non-African American GFR(CKD) 100.9 (60.0-200.0); Potassium 4.9 mmol/L (3.5-5.5); Sodium 136 mmol/L (135-145); VLDL Calculation 15.42 mg/dL (5.00-40.00)
== END | disposition home or self-care (01) ==
LOC: LABWHC1 08:52
PROVIDERS: ATTEND Nurse Practitioner Adult Health
DX: I10 Essential (primary) hypertension (principal); E78.2 Mixed hyperlipidemia
CPT/HCPCS: 36415; 80053; 80061; 85027

== ENCOUNTER 2022-01-24 13:48 | Emergency (ER) | payer BC ==
[2022-01-24 13:52] VITALS: TEMP 97
[2022-01-24] MEDS ORDERED: KETOROLAC 15 MG/ML 1 ML VIAL IVP STA (14:05)
[2022-01-24] MEDS ORDERED: SODIUM CHLORIDE 0.9% 1,000 ML IV STA (14:05)
[2022-01-24] MEDS ORDERED: ONDANSETRON 4 MG/2 ML VIAL IVP STA (14:05)
--- NOTE | 2022-01-24 14:39 | ED ---
Abdominal Pain HPI - General Chief Complaint: Abdominal Pain Stated Complaint: Abd Pain Time Seen by Provider: 01/24/22 13:53 Source: patient, family, RN notes reviewed Mode of arrival: wheelchair Limitations: no limitations - History of Present Illness Initial Comments: This is a 61-year-old male who presents to the emergency department for abdominal pain. Patient describes this as being in the bilateral lower quadrants. He has associated nausea and vomiting. States that this is an ongoing issue and has been present for the last 3 years. He often wakes up with nausea, vomiting, and lower abdominal pain. It usually resolves on its own within a couple of hours, however this pain has persisted. States that the only thing that makes it better is hot showers. The patient does smoke marijuana daily. He has seen Dr. Ji in the past, but states that it has been a couple of years. Denies any fevers, chills, sore throat, cough, dyspnea, chest pain, palpitations, diarrhea, back pain, or headaches. MD Complaint: abdominal pain Location: LLQ, RLQ Associated Symptoms: nausea, vomiting - Related Data Home Medications Medication Instructions Recorded Confirmed Aspirin 325 mg PO DAILY 03/25/15 11/26/20 Atorvastatin [Lipitor] 40 mg PO DAILY 03/25/15 11/26/20 carvediloL [Coreg] 12.5 mg PO BID 08/17/17 11/26/20 metFORMIN HCL [Glucophage] 500 mg PO TID-W/MEALS 08/17/17 11/26/20 ALPRAZolam [Xanax] 1 mg PO DAILY PRN 11/26/20 11/26/20 HYDROcodone/APAP 10-325MG [[place]ine 1 tab PO DIRECTED PRN 11/26/20 11/26/20 10-325] lisinopriL [Zestril] 5 mg PO DAILY 11/26/20 11/26/20 Previous Rx's Medication Instructions Recorded Metoclopramide [Reglan] 10 mg PO Q6H PRN #20 tab 01/24/22 Ondansetron Odt [Zofran Odt] 4 mg PO Q8HR PRN #20 tab 01/24/22 Allergies Allergy/AdvReac Type Severity Reaction Status Date / Time No Known Allergies Allergy Verified 01/24/22 13:49 Review of Systems ROS Statement: Those systems with pertinent positive or pertinent negative responses have been documented in the HPI. ROS Other: All systems not noted in ROS Statement are negative. Past Medical History Past Medical History: Coronary Artery Disease (CAD), Chest Pain / Angina, Diabetes Mellitus, GERD/Reflux, Hyperlipidemia, Hypertension, Myocardial Infarction ([place]) Additional Past Medical History / Comment(s): migraines, HX-gallstone pancreatitis, occasional back pain., states having stomach pain & nausea. Last Myocardial Infarction Date:: 2009 History of Any Multi-Drug Resistant Organisms: None Reported Past Surgical History: Adenoidectomy, Cholecystectomy, Heart Catheterization, Heart Catheterization With Stent, Tonsillectomy Additional Past Surgical History / Comment(s): sinus surgery Past Anesthesia/Blood Transfusion Reactions: No Reported Reaction Date of Last Stent Placement:: 03/27/15 Past Psychological History: Anxiety Smoking Status: Never smoker Past Alcohol Use History: Occasional Past Drug Use History: Marijuana - Past Family History Mother Family Medical History: No Reported History Additional Family Medical History / Comment(s): Mother is . Pt does not know her PMH or how old she was when she . Father Family Medical History: Coronary Artery Disease (CAD) Additional Family Medical History / Comment(s): Father is - age of unknown. General Exam Limitations: no limitations General appearance: alert, in distress Head exam: Present: atraumatic, normocephalic, normal inspection Respiratory exam: Present: normal lung sounds bilaterally. Absent: respiratory distress, wheezes, rales, rhonchi, stridor Cardiovascular Exam: Present: regular rate, normal rhythm, normal heart sounds. Absent: systolic murmur, diastolic murmur, rubs, gallop, clicks Neurological exam: Present: alert, oriented X3, CN II-XII intact Psychiatric exam: Present: normal affect, normal mood Skin exam: Present: warm, dry, intact, normal color. Absent: rash Course Vital Signs 01/24/22 13:49 Temperature 97 F L Pulse Rate 114 H Respiratory 18 Rate Blood Pressure 122/80 O2 Sat by Pulse 99 Oximetry Medical Decision Making - Medical Decision Making This is a 61-year-old male who presents to the emergency department for abdominal pain. Lab work reveals mild leukocytosis, which may be reactive due to the nausea and vomiting. Given the acute increase in pain, the patient's age and risk factors, and the noted distress, will obtain computed tomography scan of the abdomen and pelvis. Computed tomography scan of the abdomen and pelvis revealed no acute irregularities. Patient was given IV fluids, Toradol, Reglan, and Zofran. After medication administration, the patient noted substantial improvement in his symptoms. Given that this has been a chronic issue and improves with hot showers, this is very suspicious for cannabinoid hyperemesis syndrome. This was discussed with the patient, and I advised he avoid smoking marijuana for the meantime to see if his symptoms improve. Prescription for Zofran and Reglan provided to help control the patient's nausea. Advised ibuprofen and Tylenol as needed for any abdominal pain. He will contact Dr. Cole clifford's office on Wednesday (01/26) for a follow up appointment. Return precautions reviewed in depth, the patient is instructed to return to the emergency department with any new, worsening, or concerning symptoms. Patient verbalized understanding. This case was discussed in detail with the attending ED physician. Presentation, findings, and treatment plan discussed in detail as well. - Lab Data Result diagrams: 01/24/22 14:35 01/24/22 14:35 Lab Results 01/24/22 01/24/22 Range/Units 14:35 14:35 WBC 11.4 H (3.8-10.6) k/uL RBC 5.16 (4.30-5.90) m/uL Hgb 16.0 (13.0-17.5) gm/dL Hct 48.7 (39.0-53.0) % MCV 94.4 (80.0-100.0) fL MCH 30.9 (25.0-35.0) pg MCHC 32.7 (31.0-37.0) g/dL RDW 12.9 (11.5-15.5) % Plt Count 243 (150-450) k/uL MPV 8.0 Neutrophils % 75 % Lymphocytes % 17 % Monocytes % 5 % Eosinophils % 1 % Basophils % 1 % Neutrophils # 8.5 H (1.3-7.7) k/uL Lymphocytes # 2.0 (1.0-4.8) k/uL Monocytes # 0.5 (0-1.0) k/uL Eosinophils # 0.1 (0-0.7) k/uL Basophils # 0.1 (0-0.2) k/uL Sodium 136 L (137-145) mmol/L Potassium 4.4 (3.5-5.1) mmol/L Chloride 98 (98-107) mmol/L Carbon Dioxide 22 (22-30) mmol/L Anion Gap 16 mmol/L BUN 16 (9-20) mg/dL Creatinine 0.93 (0.66-1.25) mg/dL Est GFR (CKD-EPI)AfAm >90 (>60 ml/min/1.73 sqM) Est GFR (CKD-EPI)NonAf 90 (>60 ml/min/1.73 sqM) Glucose 256 H (74-99) mg/dL Calcium 9.8 (8.4-10.2) mg/dL Total Bilirubin 1.1 (0.2-1.3) mg/dL AST 39 (17-59) U/L ALT 37 (4-49) U/L Alkaline Phosphatase 105 (38-126) U/L Total Protein 8.7 H (6.3-8.2) g/dL Albumin 4.7 (3.5-5.0) g/dL Amylase 60 (30-110) U/L Lipase 217 (23-300) U/L - Radiology Data Radiology results: report reviewed, image reviewed Disposition Clinical Impression: Nausea and vomiting, Abdominal pain Disposition: HOME SELF-CARE Instructions (If sedation given, give patient instructions): Acute Nausea and Vomiting (ED), Acute Abdominal Pain (ED), Chronic Abdominal Pain (ED) Additional Instructions: Return to the emergency department with any new, worsening, or concerning symptoms. The Zofran can be taken up to every 8 hours and the Reglan up to every 6 hours as needed for nausea and vomiting. Take ibuprofen and Tylenol as needed for pain relief. Contact Dr. Ji's office on Wednesday for an appointment. Prescriptions: Metoclopramide [Reglan] 10 mg PO Q6H PRN #20 tab PRN Reason: Nausea And Vomiting Ondansetron Odt [Zofran Odt] 4 mg PO Q8HR PRN #20 tab PRN Reason: Nausea And Vomiting Is patient prescribed a controlled substance at d/c from ED?: No Referrals: Lexie Pena MD [Primary Care Provider] - 1-2 days Stacy Ji MD [STAFF PHYSICIAN] - 1-2 days
[2022-01-24 14:50] LABS: Basophils # (A) 0.1 k/uL (0-0.2); Basophils % (A) 1 %; Eosinophils # (A) 0.1 k/uL (0-0.7); Eosinophils % (A) 1 %; HCT 48.7 % (39.0-53.0); Lymphocytes % (A) 17 %; MCH 30.9 pg (25.0-35.0); MCHC 32.7 g/dL (31.0-37.0); MCV 94.4 fL (80.0-100.0); Monocytes # (A) 0.5 k/uL (0-1.0); Monocytes % (A) 5 %; Neutrophils # (A) 8.5 k/uL (1.3-7.7); Neutrophils % (A) 75 %; Platelet Count 243 k/uL (150-450); RBC 5.16 m/uL (4.30-5.90); RDW 12.9 % (11.5-15.5); WBC 11.4 k/uL (3.8-10.6)
[2022-01-24 15:00] LABS: ALT 37 U/L (4-49); AST 39 U/L (17-59); African American GFR (CKD) >90 (>60 ml/min/1.73 sqM); Albumin 4.7 g/dL (3.5-5.0); Alkaline Phosphatase 105 U/L (38-126); Amylase 60 U/L (30-110); Anion Gap 16 mmol/L; Blood Urea Nitrogen 16 mg/dL (9-20); Calcium 9.8 mg/dL (8.4-10.2); Carbon Dioxide 22 mmol/L (22-30); Chloride 98 mmol/L (98-107); Glucose 256 mg/dL (74-99); Lipase 217 U/L (23-300); Non-African American GFR(CKD) 90 (>60 ml/min/1.73 sqM); Potassium 4.4 mmol/L (3.5-5.1); Sodium 136 mmol/L (137-145); Total Bilirubin 1.1 mg/dL (0.2-1.3); Total Protein 8.7 g/dL (6.3-8.2)
[2022-01-24] MEDS ORDERED: METOCLOPRAMIDE 5 MG/ML 2 ML VIAL IVP STA (15:19)
--- NOTE | 2022-01-24 16:22 | CT ---
EXAMINATION TYPE: CT abdomen pelvis w con DATE OF EXAM: 01/24/2022 COMPARISON: 08/17/2017 HISTORY: n/v/d CT DLP: 2323.5 mGycm Automated exposure control for dose reduction was used. CONTRAST: Performed with IV Contrast, patient injected with 100 mL of Isovue 300. There is some subsegmental atelectasis right lung base. No pleural effusion. Heart size is normal. No pericardial effusion. Liver spleen stomach pancreas appear intact. The bowel gas are not dilated. There are clips from chol ecystectomy. The bile ducts are not dilated. There is no adrenal mass. Kidneys show satisfactory contrast opacification. There is no hydronephrosi s. Ureters are not dilated. No retroperitoneal adenopathy. The bladder distends smoothly. There is pr ostate calcification. No inguinal hernia. There is no mesenteric edema. No ascites or free air. No bowel obstruction. Appendix is medial and ap pears normal. No pelvic mass. No intestinal wall thickening. The lumbar vertebra. Tach. No compression fracture. There is mild posterior disc bulging at L4-5. The bony pelvis is intact. The hip joints are intact. IMPRESSION: Minimal scarring or subsegmental atelectasis right lung base without change. No acute abnormality in the abdomen and pelvis. Normal appendix.
[2022-01-24 17:39] LABS: Appearance,Urine Clear (Clear); Bacteria,Urine Rare /hpf; Bilirubin,Urine Negative (Negative); Blood,Urine Negative (Negative); Color,Urine Yellow; Glucose,Urine (UA) Trace (Negative); Ketones,Urine Negative (Negative); Leukocyte Esterase,Urine Negative (Negative); Mucus,Urine Occasional /hpf; Nitrite,Urine Negative (Negative); Protein,Urine 2+ (Negative); RBC,Urine 7 /hpf (0-5); Squamous Epithelial Cell,Urine 8 /hpf (0-4); WBC,Urine 2 /hpf (0-5)
[2022-01-24 17:49] LABS: Amphetamine Screen,Urine Not Detected (NotDetected); Barbiturate Screen,Urine Not Detected (NotDetected); Benzodiazepines Screen,Urine Not Detected (NotDetected); Cocaine Screen,Urine Not Detected (NotDetected); Methadone Screen, Urine Not Detected (NotDetected); Opiate Screen,Urine Not Detected (NotDetected); Oxycodone Screen, Urine Not Detected (NotDetected); Phencyclidine Screen,Urine Not Detected (NotDetected); Tricyclic Antidepressant,Urine Not Detected (NotDetected); Urn Cannabinoid Scrn Detected (NotDetected)
[2022-01-24 17:53] LABS: Specific Gravity,Urine >1.050 (1.001-1.035)
[2022-01-24 18:12] VITALS: BP 122/67; PULSE 111; RESP 16
== END 2022-01-24 18:12 | disposition home or self-care (01) ==
LOC: EC 13:48
DX: R10.30 Lower abdominal pain, unspecified (principal); R11.2 Nausea with vomiting, unspecified; I25.10 Atherosclerotic heart disease of native coronary artery without angina pectoris; E11.9 Type 2 diabetes mellitus without complications; E78.5 Hyperlipidemia, unspecified; I10 Essential (primary) hypertension; Z79.82 Long term (current) use of aspirin
CPT/HCPCS: 36415; 80053; 82150; 83690; 85025; 81001; 80306; 74177; 99284; 96374; 96375; 96361; J2765; J2405; J1885; Q9967; 96360